=== PATIENT | female | born 1965 | race Caucasian/White ===

== ENCOUNTER 2017-02-15 12:55 | Emergency (ER) | payer OTHER ==
[~2017-02-15] VITALS: Wt 95.3 kg
[~2017-02-15 12:55] MED LIST: AMOXICILLIN500 MG PO; AMOXIL500 MG PO; AUGMENTIN 875875 MG PO; BACTRIM DS 8001 TA1 PO; CIPRO500 MG PO; CLARITIN10 MG PO; ENALAPRIL20 MG; FLOMAX0.4 MG PO; FLONASE 0.05% 121 EA NAS; FLONASE ALLERG9.9 ML NS; KEFLEX500 MG PO; MOTRIN800 MG PO; NKHM PO; NORVASC5 MG PO; PREDNISONE20 M1 PO; PYRIDIUM200 MG PO; ROBITUSSIN DM 105 ML PO; ZESTRIL10 MG PO; ZITHROMAX Z PA250 MG PO; ZYRTEC10 MG PO
[2017-02-15] MEDS ORDERED: METOPROLOL SUCC25 M2 PO (13:15)
[2017-02-15] MEDS ORDERED: LISINOPRIL20 MG PO (13:15)
[2017-02-15] MEDS ORDERED: FENOFIBRATE160 MG PO (13:15)
[2017-02-15] MEDS ORDERED: MELOXICAM15 MG PO (13:15)
[2017-02-15] MEDS ORDERED: ATORVASTATIN CA10 M1 PO (13:15)
[2017-02-15] MEDS ORDERED: METFORMIN HCL500 MG PO (13:15)
[2017-02-15] MEDS ORDERED: D3-5050000 IU PO (13:16)
[2017-02-15] MEDS ORDERED: CEPHALEXIN500 M1 PO (15:31)
== END 2017-02-15 15:24 | disposition home or self-care (01) ==
LOC: ED 12:55
DX: S90.212A Contusion of left great toe with damage to nail, initial encounter (principal); L03.032 Cellulitis of left toe; W22.8XXA Striking against or struck by other objects, initial encounter; Y93.89 Activity, other specified; Y92.9 Unspecified place or not applicable; Y99.9 Unspecified external cause status

== ENCOUNTER 2017-03-22 08:28 | Emergency (ER) | payer OTHER ==
[~2017-03-22 08:28] MED LIST changes: +ATORVASTATIN CA10 M1 PO; +CEPHALEXIN500 M1 PO; +D3-5050000 IU PO; +FENOFIBRATE160 MG PO; +LISINOPRIL20 MG PO; +MELOXICAM15 MG PO; +METFORMIN HCL500 MG PO; +METOPROLOL SUCC25 M2 PO
[2017-03-22 08:46] LABS: BASO % 0.4 % (0.0-1.0); EOS # 0.2 10*3/uL (0.0-0.4); EOS % 1.9 % (1.0-4.0); HEMATOCRIT 42.7 % (37.0-47.0); LYMPH # 3.1 10*3/uL (1.3-4.4); LYMPH % 34.2 % (27.0-41.0); MEAN CELL VOLUME 90.5 fl (81.0-99.0); MEAN CORPUSCULAR HGB 29.7 pg (27.0-31.0); MEAN CORPUSCULAR HGB CONC 32.8 g/dl (33.0-37.0); MEAN PLATELET VOLUME 9.6 fl (9.6-12.3); MONO # 0.6 10*3/uL (0.1-1.0); MONO % 6.2 % (3.0-9.0); NEUT # 5.1 10*3/uL (2.3-7.9); PLATELET COUNT AUTOMATED 342 10*3/uL (130-400); RED BLOOD COUNT 4.72 10*6/uL (4.10-5.10); RED CELL DISTRI WIDTH 12.1 % (0-14.5); WHITE BLOOD COUNT 8.9 10*3/uL (4.8-10.8)
[2017-03-22] MEDS ORDERED: TOPROL XL50 M1 PO (08:57)
[2017-03-22] MEDS ORDERED: FLUTICASON0.05 MG/AC NAS (08:58)
[2017-03-22 09:03] LABS: ALBUMIN 3.9 gm/dl (3.1-4.5); ALKALINE PHOSPHATASE 51 U/L (45-117); BILIRUBIN, TOTAL 0.2 mg/dl (0.2-1.0); BUN 21 mg/dl (7-24); CARBON DIOXIDE 24 mmol/L (21-32); CHLORIDE 112 mmol/L (98-107); EST GLOM FILT AFRICAN AMERICAN > 60 ml/min; GLUCOSE 97 mg/dL (65-99); MAGNESIUM 2.2 mg/dL (1.5-2.1); POTASSIUM 4.2 mmol/L (3.5-5.1); SGOT/AST 18 IU/L (3-35); SGPT/ALT 22 U/L (12-78); SODIUM 146 mmol/L (136-145); TOTAL PROTEIN 7.3 gm/dL (6.4-8.2)
[2017-03-22 09:04] LABS: TROPONIN I < 0.015 ng/ml (<0.045)
[2017-03-22 10:18] LABS: BILIRUBIN NEGATIVE (NEGATIVE); BLOOD NEGATIVE (NEGATIVE); CLARITY CLEAR (CLEAR); COLOR YELLOW (YELLOW); GLUCOSE NEGATIVE (NEGATIVE); KETONE NEGATIVE (NEGATIVE); LEUKO ESTERASE NEGATIVE (NEGATIVE); NITRITE NEGATIVE (NEGATIVE); PROTEIN NEGATIVE (NEGATIVE); SPECIFIC GRAVITY 1.025 (1.005-1.030); UROBILINOGEN 0.2 E.U./dl (0.2-1.0)
[2017-03-22 10:27] LABS: BACTERIA 1+; EPITHELIAL CELLS 0-2; URINE REFLEX COMMENT NO (NO); WBC 0-2 wbc/hpf (0-5)
[2017-03-22] MEDS ORDERED: Zofran4 MG PO (10:54)
== END 2017-03-22 11:07 | disposition home or self-care (01) ==
LOC: ED 08:28
PROVIDERS: Emergency Medicine
DX: R10.9 Unspecified abdominal pain (principal); R42 Dizziness and giddiness; R07.89 Other chest pain; R11.0 Nausea; R61 Generalized hyperhidrosis; R06.02 Shortness of breath; I10 Essential (primary) hypertension; Z79.899 Other long term (current) drug therapy

== ENCOUNTER 2017-05-05 13:10 | Emergency (ER) | payer OTHER ==
[~2017-05-05] VITALS: Ht 177.8 cm; Wt 99.8 kg
[~2017-05-05 13:10] MED LIST changes: +FLUTICASON0.05 MG/AC NAS; +TOPROL XL50 M1 PO; +Zofran4 MG PO
[2017-05-05] MEDS ORDERED: PREDNISONE10 MG PO (14:38)
[2017-05-05] MEDS ORDERED: AUGMENTIN 875-875 MG PO (14:38)
== END 2017-05-05 14:49 | disposition home or self-care (01) ==
LOC: ED 13:10
DX: J20.9 Acute bronchitis, unspecified (principal); I10 Essential (primary) hypertension; Z79.899 Other long term (current) drug therapy

== ENCOUNTER 2018-01-17 20:00 | Emergency (ER) | payer OTHER ==
[~2018-01-17] VITALS: Ht 177.8 cm; Wt 99.8 kg
[~2018-01-17 20:00] MED LIST changes: +AUGMENTIN 875-875 MG PO; +PREDNISONE10 MG PO
[2018-01-17] MEDS ORDERED: OMNICEF300 MG PO (20:52)
== END 2018-01-17 20:57 | disposition home or self-care (01) ==
LOC: ED 20:00
DX: H66.93 Otitis media, unspecified, bilateral (principal); R51 Headache

== ENCOUNTER 2019-11-05 14:53 | Emergency (ER) | payer OTHER ==
[~2019-11-05] VITALS: Ht 175.2 cm; Wt 102.1 kg
[~2019-11-05 14:53] MED LIST changes: +OMNICEF300 MG PO
[2019-11-05] MEDS ORDERED: AUGMENTIN 875-875 MG PO (15:32)
== END 2019-11-05 15:41 | disposition home or self-care (01) ==
LOC: ED 14:53
DX: J01.00 Acute maxillary sinusitis, unspecified (principal); E78.00 Pure hypercholesterolemia, unspecified; E11.9 Type 2 diabetes mellitus without complications; I10 Essential (primary) hypertension; Z79.2 Long term (current) use of antibiotics; Z79.899 Other long term (current) drug therapy; Z90.710 Acquired absence of both cervix and uterus

== ENCOUNTER 2019-11-27 11:46 | Inpatient (IN) | payer OTHER ==
[2019-11-27] VITALS (11 sets, daily range): BP systolic 109–204; BP diastolic 00–103
[~2019-11-27] VITALS: Ht 175.2 cm; Wt 109.3 kg
[2019-11-27 12:25] LABS: BASO # 0.1 10*3/uL (0.0-0.1); EOS # 0.2 10*3/uL (0.0-0.4); EOS % 1.9 % (1.0-4.0); HEMATOCRIT 43.1 % (37.0-47.0); HEMOGLOBIN 14.1 g/dl (12.0-16.0); LYMPH # 1.7 10*3/uL (1.3-4.4); LYMPH % 21.5 % (27.0-41.0); MEAN CELL VOLUME 87.2 fl (81.0-99.0); MEAN CORPUSCULAR HGB 28.5 pg (27.0-31.0); MEAN CORPUSCULAR HGB CONC 32.7 g/dl (33.0-37.0); MEAN PLATELET VOLUME 9.1 fl (9.6-12.3); MONO # 0.5 10*3/uL (0.1-1.0); NEUT # 5.3 10*3/uL (2.3-7.9); NEUT % 68.3 % (47.0-73.0); PLATELET COUNT AUTOMATED 295 10*3/uL (130-400); RED BLOOD COUNT 4.94 10*6/uL (4.10-5.10); WHITE BLOOD COUNT 7.8 10*3/uL (4.8-10.8)
[2019-11-27 12:36] LABS: ACT PARTIAL THROMBO TIME 29.8 SECONDS (20.0-32.1)
[2019-11-27 12:40] LABS: ALBUMIN 3.8 gm/dl (3.1-4.5); ALKALINE PHOSPHATASE 102 U/L (45-117); BUN 15 mg/dl (7-24); CHLORIDE 109 mmol/L (98-107); LIPASE 122 U/L (73-393); SGOT/AST 21 IU/L (3-35); SGPT/ALT 47 U/L (12-78); SODIUM 140 mmol/L (136-145); TOTAL PROTEIN 7.4 gm/dL (6.4-8.2)
[2019-11-27 12:43] LABS: TROPONIN I < 0.015 ng/ml (<0.045)
[2019-11-27 14:21] LABS: BILIRUBIN NEGATIVE (NEGATIVE); BLOOD NEGATIVE (NEGATIVE); CLARITY CLEAR (CLEAR); COLOR YELLOW (YELLOW); GLUCOSE NEGATIVE (NEGATIVE); KETONE NEGATIVE (NEGATIVE); LEUKO ESTERASE NEGATIVE (NEGATIVE); NITRITE NEGATIVE (NEGATIVE); SPECIFIC GRAVITY >= 1.030 (1.005-1.030); UROBILINOGEN 0.2 E.U./dl (0.2-1.0)
[2019-11-27 14:36] LABS: RBC 0-2 rbc/hpf (0-2)
[2019-11-28] VITALS: BP 150/88
[2019-11-28 07:04] LABS: BASO # 0.1 10*3/uL (0.0-0.1); BASO % 0.4 % (0.0-1.0); EOS # 0.1 10*3/uL (0.0-0.4); EOS % 0.7 % (1.0-4.0); HEMATOCRIT 42.3 % (37.0-47.0); LYMPH # 1.6 10*3/uL (1.3-4.4); LYMPH % 13.9 % (27.0-41.0); MEAN CELL VOLUME 87.2 fl (81.0-99.0); MEAN CORPUSCULAR HGB 28.9 pg (27.0-31.0); MEAN CORPUSCULAR HGB CONC 33.1 g/dl (33.0-37.0); MEAN PLATELET VOLUME 9.2 fl (9.6-12.3); MONO # 0.7 10*3/uL (0.1-1.0); MONO % 6.5 % (3.0-9.0); NEUT # 8.9 10*3/uL (2.3-7.9); PLATELET COUNT AUTOMATED 328 10*3/uL (130-400); RED BLOOD COUNT 4.85 10*6/uL (4.10-5.10); RED CELL DISTRI WIDTH 13.2 % (0-14.5); WHITE BLOOD COUNT 11.4 10*3/uL (4.8-10.8)
[2019-11-28 07:32] LABS: BUN 15 mg/dl (7-24); CHLORIDE 106 mmol/L (98-107); CHOLESTEROL 272 mg/dL (<200); CREATININE 0.76 mg/dL (0.55-1.02); HDL CHOLESTEROL 41 mg/dl (40-60); LDL CHOLESTEROL 155 mg/dL (9-159); PHOSPHOROUS 4.1 mg/dL (2.5-4.9); POTASSIUM 3.9 mmol/L (3.5-5.1); SODIUM 138 mmol/L (136-145); TRIGLYCERIDES 381 mg/dl (<150); VLDL CHOLESTEROL 76 mg/dL (6-40)
[2019-11-28 07:48] VITALS: BP 142/82
[2019-11-28 08:48] LABS: VITAMIN D, 25-HYDROXY 25.1 ng/mL (30-100)
[2019-11-28 12:01] VITALS: BP 140/84
[2019-11-28] MEDS ORDERED: LOSARTAN POTASS50 M1 PO (13:47)
[2019-11-28] MEDS ORDERED: HYDR12.5C PO (13:47)
[2019-11-28] MEDS ORDERED: GLUCOPHAGE500 MG PO (13:47)
== END 2019-11-28 13:45 | disposition home or self-care (01) | DRG 305 ==
LOC: ED 11:46 → EDHOLD 15:43 → 4E 15:43
PROVIDERS: Internal Medicine; Nurse Practitioner Family; ADMIT Family Medicine
DX: I16.0 Hypertensive urgency (principal); B34.9 Viral infection, unspecified; I10 Essential (primary) hypertension; R00.0 Tachycardia, unspecified; E11.65 Type 2 diabetes mellitus with hyperglycemia; E66.9 Obesity, unspecified; E87.8 Other disorders of electrolyte and fluid balance, not elsewhere classified; E78.5 Hyperlipidemia, unspecified; Z90.710 Acquired absence of both cervix and uterus; Z98.891 History of uterine scar from previous surgery; Z83.3 Family history of diabetes mellitus; Z80.8 Family history of malignant neoplasm of other organs or systems; Z79.899 Other long term (current) drug therapy; Z82.49 Family history of ischemic heart disease and other diseases of the circulatory system; Z68.35 Body mass index [BMI] 35.0-35.9, adult

== ENCOUNTER → 2020-06-05 | Outpatient (CLI) | payer OTHER ==
[~2020-06-05] MED LIST changes: +GLUCOPHAGE500 MG PO; +HYDR12.5C PO; +LOSARTAN POTASS50 M1 PO
== END | disposition home or self-care (01) ==
LOC: MAMMO 15:28
DX: Z12.31 Encounter for screening mammogram for malignant neoplasm of breast (principal)

== ENCOUNTER 2020-09-02 16:46 | Emergency (ER) | payer OTHER ==
[~2020-09-02] VITALS: Wt 99.8 kg
== END 2020-09-02 19:20 | disposition home or self-care (01) ==
LOC: ED 16:46
DX: S63.502A Unspecified sprain of left wrist, initial encounter (principal); S93.401A Sprain of unspecified ligament of right ankle, initial encounter; W01.0XXA Fall on same level from slipping, tripping and stumbling without subsequent striking against object, initial encounter; Y93.89 Activity, other specified; Y92.89 Other specified places as the place of occurrence of the external cause; Y99.0 Civilian activity done for income or pay

== ENCOUNTER 2020-11-04 15:47 | Emergency (ER) | payer OTHER ==
[~2020-11-04] VITALS: Ht 175.2 cm; Wt 95.3 kg
[2020-11-04] MEDS ORDERED: TESSALON PERLE100 MG PO (16:27)
== END 2020-11-04 17:32 | disposition home or self-care (01) ==
LOC: ED 15:47
DX: U07.1 COVID-19 (principal); J06.9 Acute upper respiratory infection, unspecified; R19.7 Diarrhea, unspecified; E11.9 Type 2 diabetes mellitus without complications; I10 Essential (primary) hypertension; E78.5 Hyperlipidemia, unspecified; E66.9 Obesity, unspecified; M19.90 Unspecified osteoarthritis, unspecified site; Z68.30 Body mass index [BMI] 30.0-30.9, adult; Z79.899 Other long term (current) drug therapy; Z90.710 Acquired absence of both cervix and uterus; Z98.890 Other specified postprocedural states

== ENCOUNTER 2021-02-28 09:18 | Emergency (ER) | payer OTHER ==
[~2021-02-28] VITALS: Ht 175.2 cm; Wt 95.3 kg
[~2021-02-28 09:18] MED LIST changes: +TESSALON PERLE100 MG PO
[2021-02-28 09:45] LABS: BASO # 0.1 10*3/uL (0.0-0.1); BASO % 0.9 % (0.0-1.0); EOS # 0.2 10*3/uL (0.0-0.4); HEMATOCRIT 43.3 % (37.0-47.0); LYMPH # 2.4 10*3/uL (1.3-4.4); LYMPH % 27.8 % (27.0-41.0); MEAN CELL VOLUME 89.8 fl (81.0-99.0); MEAN CORPUSCULAR HGB 28.4 pg (27.0-31.0); MEAN CORPUSCULAR HGB CONC 31.6 g/dl (33.0-37.0); MEAN PLATELET VOLUME 9.2 fl (9.6-12.3); MONO # 0.6 10*3/uL (0.1-1.0); MONO % 7.4 % (3.0-9.0); NEUT # 5.2 10*3/uL (2.3-7.9); NEUT % 61.5 % (47.0-73.0); PLATELET COUNT AUTOMATED 319 10*3/uL (130-400); RED BLOOD COUNT 4.82 10*6/uL (4.10-5.10); RED CELL DISTRI WIDTH 13.3 % (0-14.5); WHITE BLOOD COUNT 8.5 10*3/uL (4.8-10.8)
[2021-02-28 09:46] LABS: BILIRUBIN Negative (Negative); BLOOD Trace-Intact (Negative); CLARITY Cloudy (Clear); COLOR Yellow (Yellow); GLUCOSE Negative (Negative); KETONE Trace (Negative); LEUKO ESTERASE 3+ (Negative); NITRITE Negative (Negative); SPECIFIC GRAVITY 1.025 (1.001-1.030); UROBILINOGEN 0.2 E.U./dl (0.0-1.0)
[2021-02-28 10:02] LABS: ALBUMIN 3.7 gm/dl (3.1-4.5); ALKALINE PHOSPHATASE 93 U/L (45-117); BUN 11 mg/dl (7-24); CHLORIDE 104 mmol/L (98-107); CREATININE 0.77 mg/dL (0.55-1.02); LIPASE 122 U/L (73-393); POTASSIUM 4.1 mmol/L (3.5-5.1); SGOT/AST 26 IU/L (3-35); SGPT/ALT 51 U/L (12-78); SODIUM 137 mmol/L (136-145); TOTAL PROTEIN 7.8 gm/dL (6.4-8.2)
[2021-02-28 10:03] LABS: BACTERIA 1+; FINE GRANULAR CAST 0-2; HYALINE CAST 0-2; WBC 51-100 wbc/hpf (0-5)
[2021-02-28 10:03] LABS: TROPONIN I < 0.015 ng/ml (<0.045)
[2021-02-28] MEDS ORDERED: MACROBID100 M1 PO (11:00)
== END 2021-02-28 11:10 | disposition home or self-care (01) ==
LOC: ED 09:18
PROVIDERS: Emergency Medicine
DX: N39.0 Urinary tract infection, site not specified (principal); I10 Essential (primary) hypertension; Z79.899 Other long term (current) drug therapy; Z90.711 Acquired absence of uterus with remaining cervical stump; Z98.890 Other specified postprocedural states; Z87.891 Personal history of nicotine dependence

== ENCOUNTER → 2021-03-27 | Outpatient (CLI) | payer OTHER ==
[~2021-03-27] MED LIST changes: +MACROBID100 M1 PO
== END | disposition home or self-care (01) ==
LOC: RAD 11:30
PROVIDERS: ATTEND Nurse Practitioner Family
DX: M50.30 Other cervical disc degeneration, unspecified cervical region (principal); M48.02 Spinal stenosis, cervical region; M47.812 Spondylosis without myelopathy or radiculopathy, cervical region